=== PATIENT | male | born 1965 | race Two or more races ===

== ENCOUNTER 2024-01-09 13:24 | Inpatient (IN) | payer OTHER ==
[~2024-01-09] VITALS: Ht 167.6 cm; Wt 86.4 kg
[2024-01-09 14:52] LABS: EOSINOPHILS % (AUTO) 5.9 % (1.0-6.0); HEMATOCRIT 44.7 % (41-53); HEMOGLOBIN 14.8 g/dL (13.5-17.5); LYMPHOCYTES # (AUTO) 2.4 K/uL (1.0-4.8); LYMPHOCYTES % (AUTO) 42.7 % (22.0-44.0); MEAN CORPUSCULAR HGB CONC 33.2 G/dL (31.0-37.0); MEAN CORPUSCULAR VOLUME 91 fL (80-100); MONOCYTES # (AUTO) 0.4 K/uL (0.1-1.0); MONOCYTES % (AUTO) 7.7 % (2.0-9.0); NEUTROPHILS # (AUTO) 2.4 K/uL (1.8-7.7); NEUTROPHILS % (AUTO) 42.7 % (40.0-70.0); PLATELET COUNT (AUTO) 241 K/uL (150-450); RED BLOOD CELL COUNT(AUTO) 4.94 MIL/uL (4.50-5.90); RED CELL DISTRIBUTION WIDTH 12.7 % (11.5-14.5); WHITE BLOOD COUNT (AUTO) 5.7 K/uL (4.5-11.0)
[2024-01-09 15:03] LABS: ANION GAP 11 mmol/L (8-16); CALCIUM, TOTAL 8.8 mg/dL (8.8-10.5); CARBON DIOXIDE 26 mmol/L (22-29); CHLORIDE 97 mmol/L (98-107); GLOMERULAR FILTR. RATE CALC > 60 mL/min (>60); GLUCOSE,RANDOM 194 mg/dL (70-110); SODIUM SERUM 134 mmol/L (136-145); UREA NITROGEN, BLOOD 13 mg/dL (7-18)
[2024-01-09 15:13] LABS: ALANINE AMINOTRANSFERASE 26 U/L (12-78); ALBUMIN 3.8 g/dL (3.4-5.0); ALKALINE PHOSPHATASE 115 U/L (46-116); ASPARTATE AMINOTRANSFERASE 18 U/L (15-37); BILIRUBIN,TOTAL 0.4 mg/dL (0.1-1.0)
[2024-01-09 15:41] LABS: INFLUENZA A-RTPCR,COMBO NEGATIVE (NEGATIVE); INFLUENZA B-RTPCR,COMBO NEGATIVE (NEGATIVE); RESPIRATORY SYNCYTIAL VRS-PCR NEGATIVE (NEGATIVE); SARS COVID19 RTPCR, COMBO NEGATIVE (NEGATIVE)
[2024-01-09 20:33] VITALS: BP 118/67; PULSE 69; RESP 20; TEMP 98.3
[2024-01-10 04:06] LABS: HIV 1-2 SCREEN 4TH GEN W/RFLX Non Reactive (Non Reactive)
[2024-01-10 04:58] VITALS: BP 105/61; PULSE 62; RESP 20; TEMP 97.8
[2024-01-10 06:02] LABS: MTB PCR w/Rif. Resistance-SPUT NOT DETECTED (Not Detectd)
[2024-01-10 08:13] VITALS: BP 121/75; PULSE 60; RESP 18; TEMP 98.4
[2024-01-10 09:40] LABS: MTB PCR w/Rif. Resistance-SPUT NOT DETECTED (Not Detectd)
[2024-01-10 20:30] VITALS: BP 117/66; PULSE 73; RESP 18; TEMP 98.2
[2024-01-11 05:21] VITALS: BP 123/77; PULSE 71; RESP 18; TEMP 97.8
[2024-01-11 06:33] LABS: ANION GAP 6 mmol/L (8-16); CALCIUM, TOTAL 8.6 mg/dL (8.8-10.5); CARBON DIOXIDE 28 mmol/L (22-29); CHLORIDE 99 mmol/L (98-107); GLOMERULAR FILTR. RATE CALC > 60 mL/min (>60); GLUCOSE,RANDOM 180 mg/dL (70-110); POTASSIUM 3.7 mmol/L (3.5-5.1); SODIUM SERUM 133 mmol/L (136-145); UREA NITROGEN, BLOOD 17 mg/dL (7-18)
[2024-01-11 06:37] LABS: HEMOGLOBIN A1C 10.8 % (3.8-5.6)
[2024-01-11 08:17] VITALS: BP 133/87; PULSE 76; RESP 18; TEMP 97.9
[2024-01-11 15:51] VITALS: BP 109/82; PULSE 77; RESP 18; TEMP 98.5
[2024-01-11 20:00] VITALS: BP 108/66; PULSE 80; RESP 18; TEMP 97.7
[2024-01-12 05:50] VITALS: BP 118/62; PULSE 63; RESP 17; TEMP 97.8
[2024-01-12 08:20] VITALS: BP 116/85; PULSE 69; RESP 17; TEMP 97.4
[2024-01-12 19:54] VITALS: BP 113/68; PULSE 71; RESP 18; TEMP 97.5
[2024-01-12 23:06] LABS: QUANTIFERON+, Nil Value 0.02 IU/mL; QUANTIFERON+,Mitogen Value >10.00 IU/mL; QUANTIFERON+,TB1 Antigen Value 4.07 IU/mL; QUANTIFERON+,TB2 Antigen Value 4.58 IU/mL; QUANTIFERON, TB GOLD PLUS Positive (Negative)
[2024-01-13 00:18] VITALS: BP 119/72; PULSE 59; RESP 18; TEMP 98
[2024-01-13 08:07] VITALS: BP 118/85; PULSE 75; RESP 18; TEMP 97.9
[2024-01-13 16:36] VITALS: BP 123/50; PULSE 71; RESP 18; TEMP 97.5
[2024-01-13] MEDS: MetFORMIN HCL 500 MG TABLET PO SCH (18:49)
[2024-01-13 20:12] VITALS: BP 127/82; PULSE 73; RESP 20; TEMP 97.5
[2024-01-14 08:03] VITALS: BP 114/80; PULSE 66; RESP 18; TEMP 97.8
[2024-01-14] MEDS ORDERED: DEXTROSE 50%-WATER 25 GM/50 ML SYRINGE IVP PRN (12:15)
[2024-01-14] MEDS: INSULIN LISPRO 100 UNITS/ML SQ PRN (17:03)
[2024-01-14] MEDS: INSULIN GLARGINE,HUM.REC.ANLOG 100 UNITS/ML SQ SCH (20:44)
[2024-01-14 20:48] VITALS: BP 105/76; PULSE 77; RESP 20; TEMP 97.7
[2024-01-15] MEDS: ZOLPIDEM TARTRATE 5 MG TABLET PO PRN (00:17)
[2024-01-15 02:01] LABS: GLUCOMETER DEV NAME(LOC) 6S.2; GLUCOSE,POINT OF CARE 186 MG/DL (70-110)
[2024-01-15 02:01] LABS: GLUCOMETER DEV NAME(LOC) 6N.2B; GLUCOSE,POINT OF CARE 242 MG/DL (70-110)
[2024-01-15 05:01] VITALS: BP 122/58; PULSE 82; RESP 20; TEMP 98.4
[2024-01-15 10:00] VITALS: BP 139/93; PULSE 70; RESP 19; TEMP 97.8
[2024-01-15 10:06] LABS: GLUCOMETER DEV NAME(LOC) 6N.2B; GLUCOSE,POINT OF CARE 162 MG/DL (70-110)
[2024-01-15] MEDS: PYRAZINAMIDE 500 MG TABLET PO SCH (14:43)
[2024-01-15] MEDS: RIFAMPIN 300 MG CAPSULE PO SCH (14:44)
[2024-01-15] MEDS: ISONIAZID 300 MG TABLET PO SCH (14:44)
[2024-01-15] MEDS: ETHAMBUTOL HCL 400 MG TABLET PO SCH (14:44)
[2024-01-15] MEDS: PYRIDOXINE HCL 50 MG TABLET PO SCH (14:45)
[2024-01-15 16:01] LABS: GLUCOMETER DEV NAME(LOC) 6N.2B; GLUCOSE,POINT OF CARE 179 MG/DL (70-110)
[2024-01-15 20:15] VITALS: BP 119/69; PULSE 64; RESP 20; TEMP 97.9
[2024-01-16 05:35] VITALS: BP 108/57; PULSE 62; RESP 18; TEMP 98.3
[2024-01-16 07:48] LABS: ALBUMIN 3.5 g/dL (3.4-5.0); BILIRUBIN,DIRECT 0.2 mg/dL (0.00-0.20); BILIRUBIN,TOTAL 0.9 mg/dL (0.1-1.0); TOTAL PROTEIN, SERUM 7.8 g/dL (6.4-8.2)
[2024-01-16 08:31] VITALS: BP 111/75; PULSE 65; RESP 18; TEMP 97.7
[2024-01-16] MEDS ORDERED: PYRI-9 PO (12:06)
[2024-01-16] MEDS ORDERED: PYRA500T34 PO (12:06)
[2024-01-16] MEDS ORDERED: ETHA400 PO (12:06)
[2024-01-16] MEDS ORDERED: METF-1211 PO (12:06)
[2024-01-16] MEDS ORDERED: ISON300 PO (12:06)
[2024-01-16] MEDS ORDERED: RIFA300C62 PO (12:06)
[2024-01-16 19:15] LABS: GLUCOMETER DEV NAME(LOC) 6N.2B; GLUCOSE,POINT OF CARE 148 MG/DL (70-110)
[2024-01-16 19:15] LABS: GLUCOMETER DEV NAME(LOC) 6N.2B; GLUCOSE,POINT OF CARE 180 MG/DL (70-110)
[2024-01-16 19:15] LABS: GLUCOMETER DEV NAME(LOC) 6N.2B; GLUCOSE,POINT OF CARE 159 MG/DL (70-110)
[2024-01-16 19:15] LABS: GLUCOMETER DEV NAME(LOC) 6N.2B; GLUCOSE,POINT OF CARE 126 MG/DL (70-110)
[2024-01-16 20:11] LABS: GLUCOMETER DEV NAME(LOC) 6S.2; GLUCOSE,POINT OF CARE 169 MG/DL (70-110)
== END 2024-01-17 03:45 | DRG 178 ==
LOC: EMS 13:24 → EDH 16:14 → 6S 20:00
PROVIDERS: ADMIT Internal Medicine; ATTEND Internal Medicine
DX: A15.0 Tuberculosis of lung (principal); E87.1 Hypo-osmolality and hyponatremia; K76.0 Fatty (change of) liver, not elsewhere classified; K57.30 Diverticulosis of large intestine without perforation or abscess without bleeding; Z20.822 Contact with and (suspected) exposure to COVID-19; E11.65 Type 2 diabetes mellitus with hyperglycemia; Z87.891 Personal history of nicotine dependence
CPT/HCPCS: 0241U; 71046; 71250; 80048; 80053; 80076; 82962; 83036; 85025; 86480; 87015; 87206; 87389; 87556; 94640; 99285; J1815; 36415-L1; 36415-TC